=== PATIENT | male | born 1950 | race Caucasian/White ===

== ENCOUNTER 2020-04-23 21:17 | Emergency (ER) | payer MEDICARE, OTHER ==
[~2020-04-23] VITALS: Ht 185.4 cm; Wt 122.9 kg
[2020-04-23] MEDS ORDERED: PRED5PAK PO (21:42)
[2020-04-23] MEDS ORDERED: NAPR-855 PO (21:42)
[2020-04-23] MEDS ORDERED: METO1TAB33 PO (21:42)
[2020-04-23] MEDS ORDERED: DULO60CA35 PO (21:42)
[2020-04-23] MEDS ORDERED: XARE20TA PO (21:42)
[2020-04-23] MEDS ORDERED: SIMV20TA22 PO (21:42)
[2020-04-23] MEDS ORDERED: CLINDAMYCIN 900 MG in IV 1 EA IV ONE (22:00)
[2020-04-23 22:34] LABS: BASO % 0.3 % (0.0-1.0); EOS # 0.2 10^3/uL (0.0-0.5); HEMATOCRIT 36.5 % (42.0-52.0); HEMOGLOBIN 12.2 g/dl (13.5-17.5); LYMPH # 2.1 10^3/uL (1.5-5.0); MEAN CORPUSCULAR HEMOGLOBIN 32.9 pg (27.0-33.0); MEAN CORPUSCULAR HGB CONC 33.4 g/dl (32.0-36.5); MEAN CORPUSCULAR VOLUME 98.4 fl (80.0-96.0); MONO % 8.6 % (0.0-5.0); NEUTROPHILS # 8.3 10^3/uL (1.5-8.5); NEUTROPHILS % 70.7 % (36.0-66.0); PLATELET COUNT, AUTOMATED 252 10^3/uL (150-450); RED BLOOD COUNT 3.71 10^6/uL (4.30-6.10); WHITE BLOOD COUNT 11.7 10^3/uL (4.0-10.0)
[2020-04-23 22:59] LABS: ERYTHROCYTE SEDIMENTATION RATE 43 mm/hr (0-20)
[2020-04-23] MEDS ORDERED: CLEO300C2 PO ×2 (23:22→23:23)
[2020-04-23 23:26] VITALS: BP 112/70
== END 2020-04-23 23:44 | disposition home or self-care (01) ==
LOC: M ED 21:17
DX: L03.011 Cellulitis of right finger (principal); E78.5 Hyperlipidemia, unspecified; I48.91 Unspecified atrial fibrillation; I10 Essential (primary) hypertension